=== PATIENT | male | born 1965 | race Caucasian/White ===

== ENCOUNTER 2018-10-25 16:33 | Emergency (ER) | payer OTHER ==
[2018-10-25] MEDS ORDERED: NS 500 ML IV ONE (17:19)
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
[2018-10-25] MEDS ORDERED: KETOROLAC 30 MG/1 ML SDV IVP ONE (17:26)
[2018-10-25] MEDS ORDERED: KETOROLAC 30 MG/1 ML SDV ONE (17:27)
[2018-10-25] MEDS ORDERED: GADOBUTROL 10 ML VIAL IVP ONE (18:34)
[2018-10-25 20:41] VITALS: BP 143/112
== END 2018-10-25 20:37 | disposition home or self-care (01) ==
DX: M79.2 Neuralgia and neuritis, unspecified (principal); R20.0 Anesthesia of skin; Y99.0 Civilian activity done for income or pay
CPT/HCPCS: 82435-PO; 82565-PO; 82947-PO; 84132-PO; 84295-PO; 84520-PO; 85014-ER; 96374; A9585; J1885